=== PATIENT | female | born 1945 | race Caucasian/White ===

== ENCOUNTER 2017-09-27 17:08 | Emergency (ER) | payer OTHER, SELFPAY ==
[2017-09-27 17:09] VITALS: BP 152/58; PULSE 113; RESP 16; TEMP 38.2; O2SAT 100; BMI 25.9
--- NOTE | 2017-09-27 17:36 | EKG12_ITS ---
Test Reason : FEVER Blood Pressure : / mmHG Vent. Rate : 108 BPM Atrial Rate : 108 BPM P-R Int : 150 ms QRS Dur : 074 ms QT Int : 340 ms P-R-T Axes : 060 035 055 degrees QTc Int : 455 ms Sin[address] tachycardia Nonspecific ST abnormality Abnormal ECG Confirmed by FRANKLIN VALENTINE, JOSÉ ANTONIO ([id number]), book or script editor ANUEL ZAMUDIO ([id number] on 09/29/2017 9:01:22 AM Referred By: MAEVE Confirmed By:JOSÉ ANTONIO REID MD
--- NOTE | 2017-09-27 17:42 | ED.VISSUMM ---
- ER Visit Summary Date of Service: 09/27/17 Chief Complaint: Sore throat followed by cough and fever and chills today. History of Present Illness: The patient is a 71 F who was seen at the [facility]. She was sent to the emergency department. She reports sore throat on Tuesday. She states she has a cough. She informed the cough is nonproductive. Notes from [facility] indicate that she had a productive cough. She reports shaking chills. Mild frontal discomfort. No double vision blurred vision loss of vision photosensitivity. He does complain of neck pain but no stiffness. She no longer complains of sore throat. She denies dyspnea on exertion. She denies nausea, vomiting diarrhea. She denies dysuria, frequency, urgency or hematuria. She denies any myalgias arthralgias or skin lesion. Patient states she takes vitamins. She has no significant past medical history. Temperature at the [facility] was 102.8? with a heart rate of 112. Physical Examination: Vital signs are remarkable for a temperature 100.8, heart rate 113 and blood pressure 152/58. She appears ill but not toxic. Exam was limited and she is on a chair in the mota. Pupils equal round reactive paradoxic muscle intact. Sclerae anicteric. TMs normal. Posterior pharyngeal erythema XA. Uvula is midline. Mucosa is moist. Trach is midline. No cervical lymphadenopathy. There is no stridor. Heart is rapid and regular without murmur, gallop or rub. Lungs reveal rales left base posteriorly greater than right with egophony and increased vocal fremitus on the left. Abdomen is soft nontender. She has no dermatologic lesions noted. Neuro exam is nonfocal. Test Results: White count is 12,000 with 88 segs no bands. Electro panels unremarkable. Coags normal. Lactate 0.8. Two-view chest x-ray reveals no infiltrate. EKG sinus tachycardia rate of 108 with minimal nonspecific changes. Interval and axis is normal. Emergency Department Course and Treatment: Since she is febrile with findings consistent with pneumonia left lower lobe sepsis workup was undertaken and some 100 mg levofloxacin was ordered. Patient was informed that she probably will be admitted to the hospital Treatment Plan: Patient received 1 L of normal saline and 750 mg levofloxacin. Since she has a elevated white count and tachycardic with a clinical pneumonia she has sepsis. She is not need admission based on port score. Will discharge with prescription for levofloxacin and follow-up with PCP Disposition: Discharged to home with appropriate home-going instruction and prescription for levofloxacin Impression: 1. Clinical left lower lobe pneumonia 2. Sepsis This note was generated with [employer] dictation software. It may contain incorrect words, spelling, and punctuation that were not noted in review of the chart prior to signing ED Disposition - Plan for ED Patient: Disposition: Home or Assisted Living Chief Complaint: Sore Throat Instructions: ED Pneumonia Adult Prescriptions: Levofloxacin [Levaquin] 500 mg PO DAILY #6 tab Referrals: [facility] Doctor,Out of [Primary Care Provider] - 1-2 Days if not improving
--- NOTE | 2017-09-27 17:45 | ED.DCSUM_ITS ---
- ER Visit Summary Date of Service: 09/27/17 Chief Complaint: Sore throat followed by cough and fever and chills today. History of Present Illness: The patient is a 71 F who was seen at the [facility]. She was sent to the emergency department. She reports sore throat on Tuesday. She states she has a cough. She informed the cough is nonproductive. Notes from [facility] indicate that she had a productive cough. She reports shaking chills. Mild frontal discomfort. No double vision blurred vision loss of vision photosensitivity. He does complain of neck pain but no stiffness. She no longer complains of sore throat. She denies dyspnea on exertion. She denies nausea, vomiting diarrhea. She denies dysuria, frequency, urgency or hematuria. She denies any myalgias arthralgias or skin lesion. Patient states she takes vitamins. She has no significant past medical history. Temperature at the [facility] was 102.8? with a heart rate of 112. Physical Examination: Vital signs are remarkable for a temperature 100.8, heart rate 113 and blood pressure 152/58. She appears ill but not toxic. Exam was limited and she is on a chair in the mota. Pupils equal round reactive paradoxic muscle intact. Sclerae anicteric. TMs normal. Posterior pharyngeal erythema XA. Uvula is midline. Mucosa is moist. Trach is midline. No cervical lymphadenopathy. There is no stridor. Heart is rapid and regular without murmur, gallop or rub. Lungs reveal rales left base posteriorly greater than right with egophony and increased vocal fremitus on the left. Abdomen is soft nontender. She has no dermatologic lesions noted. Neuro exam is nonfocal. Test Results: White count is 12,000 with 88 segs no bands. Electro panels unremarkable. Coags normal. Lactate 0.8. Two-view chest x-ray reveals no infiltrate. EKG sinus tachycardia rate of 108 with minimal nonspecific changes. Interval and axis is normal. Emergency Department Course and Treatment: Since she is febrile with findings consistent with pneumonia left lower lobe sepsis workup was undertaken and some 100 mg levofloxacin was ordered. Patient was informed that she probably will be admitted to the hospital Treatment Plan: Patient received 1 L of normal saline and 750 mg levofloxacin. Since she has a elevated white count and tachycardic with a clinical pneumonia she has sepsis. She is not need admission based on port score. Will discharge with prescription for levofloxacin and follow-up with PCP Disposition: Discharged to home with appropriate home-going instruction and prescription for levofloxacin Impression: 1. Clinical left lower lobe pneumonia 2. Sepsis This note was generated with [employer] dictation software. It may contain incorrect words, spelling, and punctuation that were not noted in review of the chart prior to signing ED Disposition - Plan for ED Patient: Disposition: Home or Assisted Living Chief Complaint: Sore Throat Instructions: ED Pneumonia Adult Prescriptions: Levofloxacin [Levaquin] 500 mg PO DAILY #6 tab Referrals: [facility] Doctor,Out of [Primary Care Provider] - 1-2 Days if not improving
--- NOTE | 2017-09-27 18:03 | NURSING ---
NO OLD EKGS
[2017-09-27 18:12] VITALS: TEMP 38.3
[2017-09-27 18:13] VITALS: BP 127/55; PULSE 105; RESP 19; TEMP 35.5
[2017-09-27 18:27] LABS: Absolute Lymphocyte Count 0.64 X10^3/ul (0.83-4.51); Absolute Neutrophil Count 10.6 X10^3/uL (2.0-7.7); Basophil# 0.02 X10^3/uL; Basophil% 0.2 % (0-1); Eosinophil# 0.06 X10^3/uL; Eosinophils% 0.5 % (0-5); Hematocrit 39.3 % (37-47); Hemoglobin 13.1 g/dl (12.0-15.0); Lymphocyte # 0.64 X10^3/ul (4.0); Lymphocyte % 5.3 % (19-41); Mean Corp Hgb Conc 33.3 g/gl (32-36); Mean Corpuscular Hgb 30.1 pg (27.0-32.0); Mean Corpuscular Volume 90.3 fL (81-99); Mean Platelet Vol. 10.1 fl (6.2-12.0); Monocyte# 0.74 X10^3/uL; Monocyte% 6.1 % (0-10); Neutrophil # 10.57 X10^3/uL (2.7-7.7); Neutrophil % 87.8 % (47-70); Platelet Count 243 K/mm3 (150-450); RBC Distribution Width CV 13.2 % (11.6-14.6); RBC Distribution Width SD 43.3 fl (35.1-43.9); Red Blood Count 4.35 M/mm3 (4.2-5.4)
[2017-09-27 18:30] LABS: Prothrombin Time (Protime)PT. 13.5 SECONDS (11.7-14.9)
[2017-09-27 18:31] LABS: POSITIVE COUNT NO; POSITIVE DIFFERENTIAL NO; POSITIVE MORPHOLOGY NO; Partial Thromboplast Time 29.6 Seconds (24.1-36.2)
[2017-09-27 18:46] LABS: Bacteria 0 SEEN /hpf (None Seen); Mucous, Urine 0 SEEN /hpf (<or=2+); Red Blood Cells-Urine 0 SEEN /hpf (0-5)
[2017-09-27 18:57] LABS: ALB/GLOB Ratio 0.9 RATIO (0.9-2.4); AST(SGOT) 37 U/L (15-37); Alanine Aminotransfer ALT/SGPT 45 U/L (13-56); Albumin, Serum 3.6 g/dL (3.2-5.0); Alkaline Phosphatase 93 U/L (45-117); Anion Gap 6 (5-15); BUN 18 mg/dL (7-18); BUN/Creat Ratio 21.6 RATIO (10-20); Calcium,Total 8.7 mg/dL (8.5-10.1); Chloride 105 mmol/L (98-107); Creatinine, Serum 0.83 mg/dL (0.55-1.02); EST Glomerular Filtration Rate 71 mL/min (>60); Est Glom Filt Rate - Afr Amer 86 mL/min (>60); Estimated Creatinine Clearance 49.94 ml/min; Globulin 3.9 g/dL (2.2-4.2); Glucose 100 mg/dL (74-106); Potassium 3.7 mmol/L (3.5-5.1); Protein, Total 7.5 g/dL (6.4-8.2); Sodium Level 137 mmol/L (136-145)
[2017-09-27] MEDS: 0.9% Normal Saline 1,000 ML 250 ML IV (18:59)
[2017-09-27] MEDS: levoFLOXacin IV 750 MG/150 ML BAG 100 MG IV (18:59)
[2017-09-27 19:02] LABS: Color, Urine Yellow (Yellow); Glucose, Dipstick Normal (Normal); Ketone-Dipstick 50 mg/dl (Negative); Leukocyte Esterase-Dipstick 100 /ul (Negative); Nitrite-Dipstick Negative (Negative); Occult Blood-Urine 10 /ul (Negative); Protein-Dipstick 15 mg/dl (Negative); Specific Gravity, Urine 1.015 (1.002-1.030); Urine Bilirubin Dipstick Negative (Negative); Urine Clarity Clear (Clear); Urine Urobilinogen Normal (Normal)
[2017-09-27 19:04] LABS: Squamous Epithelial Cells - UA 0-5 SEEN /hpf (5-10); White Blood Cells 0-5 SEEN /hpf (0-5)
[2017-09-27 19:14] VITALS: BP 121/51; PULSE 98; RESP 19; O2SAT 97
[2017-09-27 19:36] VITALS: BMI 26.0
--- NOTE | 2017-09-27 19:45 | RAD_ITS ---
STUDY: X-RAY CHEST REASON FOR EXAM: Female, 71 years old. Fever chills and sore throat x3 days TECHNIQUE: PA and lateral views of the chest. COMPARISON: None. FINDINGS: ob/gyn physician leads are present. The lungs are clear and expanded. There is no demonstrated pleural abnormality. Normal size heart. Normal mediastinum and richard. Normal visualized pulmonary arteries. Normal visualized aortic arch and descending thoracic aorta. Normal visualized thoracic spine. Normal visualized ribs, clavicles, and shoulders. There is no demonstrated abnormality of the visualized soft tissue structures of the upper abdomen. RAD/Chest PA and Lateral IMPRESSION: Normal x-ray examination of the chest. Electronically Signed: Maximino Mitchell MD at 20:34 EDT , Service support ,
[2017-09-27 19:48] LABS: Lactic Acid 0.8 mmol/L (0.4-2.0)
[2017-09-27 20:14] VITALS: BP 119/51; PULSE 99; RESP 17; O2SAT 97
[2017-09-27 20:29] VITALS: BP 127/56; PULSE 97; RESP 16; O2SAT 97
[2017-09-27] MEDS: HYDROcodone Bitartrate/Apap 5/325 Tablet PO (20:40)
== END 2017-09-27 20:45 | disposition home or self-care (01) ==
PROVIDERS: Emergency Provider Emergency Medicine
DX: A41.9 Sepsis, unspecified organism (principal); J18.9 Pneumonia, unspecified organism
CPT/HCPCS: 71046; 80053; 81001; 83605; 85025; 85610; 85730; 87040; 87086; 87088; 93005; 96365; 99285; J7030; A4216